=== PATIENT | female | born 1965 | race Caucasian/White ===

== ENCOUNTER 2018-04-06 07:40 | Inpatient (IN) | payer BC ==
[~2018-04-06] VITALS: Ht 149.9 cm; Wt 78.5 kg
--- OUTSIDE RECORDS SUMMARY | 2018-04-06 07:42 | XMS REPORT | Continuity of Care Document ---
Author Author [facility] Interface Address Unknown Phone Unavailable Problems Problem Status Onset Date Classification Date Reported Comments Source Upper respiratory infection 05/24/2017 Diagnosis 05/24/2017 [facility] Feeling feverish 05/24/2017 Diagnosis 05/24/2017 [facility] Pain in throat 05/24/2017 Diagnosis 05/24/2017 [facility] Medications Medication Details Route Status Patient Instructions Ordering Provider Order Date Source Brompheniramine Maleate 0.4 MG/ML / Dextromethorphan Hydrobromide 2 MG/ML / Pseudoephedrine Hydrochloride 6 MG/ML Oral Solution [Bromfed DM] Bromfed DM 2 mg-30 mg-10 mg/5 mL syrup Take 10 mL every 4 hours by oral route as needed. Active [facility] Allergies, Adverse Reactions, Alerts Substance Category Reaction Severity Reaction type Status Date Reported Comments Source Immunizations Immunization Date Given Site Status Last Updated Comments Source Results Order Name Results Value Reference Range Date Interpretation Comments Source RESULT negative 05/24/2017 [facility] SWAB LOCATION Left and Right tonsillar pillars 05/24/2017 [facility] Influenza A negative 05/24/2017 [facility] Influenza B negative 05/24/2017 [facility] Vital Signs Vital Sign Value Date Comments Source Diastolic (mm Hg) 78 05/24/2017 [facility] Height 60 05/24/2017 [facility] Systolic (mm Hg) 120 05/24/2017 [facility] Weight 160 05/24/2017 [facility] Encounters Location Location Details Encounter Type Encounter Number Reason For Visit Attending Provider ADM Date DC Date Status Source [place] - [facility] - [id number] Angel Carbajal, ELODIA-C: [address] [place] [address], Ph. [id number] Angel Carbajal 05/24/2017 [facility] Procedures Procedure Code Date Perfomer Comments Source Tubal Ligation [facility]
--- OUTSIDE RECORDS SUMMARY | 2018-04-06 07:42 | XMS REPORT | Clinical Summary ---
Author Author [facility] Organization [facility] Address Unknown Phone Unavailable Care Team Providers Care Wool Hat Finisher Name Role Phone Thierry Bauman MD PCP Allergies Active Allergy Reactions Severity Noted Date Comments Prednisone Other (See Comments), Low 06/04/2015 Rash Current Medications Prescription Sig. Disp. Refills Start End Date Status Date conjugated estrogens Insert 0.5 g into the 45 g 3 10/01/19 10/01/19 (PREMARIN) 0.625 mg/gram vagina 2 (two) times a 17 18 vaginal cream week. Active Problems Not on file Encounters Date Type Specialty Care Team Description 02/09/2018 Office Visit Obstetrics and Gynecology Ivis Munroe MD Visit for gynecologic examination (Primary Dx); Screening for breast cancer; Menopausal symptoms; Screening for malignant neoplasm of colon after 04/05/2017 Family History Medical History Relation Name Comments Hypertension Father Wood Miscarriages / Mother Melanie Stillbirths Osteoporosis Mother Melanie Relation Name Status Comments Father Wood Alive Mother Melanie Alive Social History Tobacco Use Types Packs/Day Years Used Date Never Smoker Smokeless Tobacco: Never Used Alcohol Use Drinks/Week oz/Week Comments No Sex Assigned at Date Recorded Not on file Last Filed Vital Signs Vital Sign Reading Time Taken Blood Pressure 126/84 02/09/2018 2:55 PM CDT Pulse 70 02/09/2018 2:55 PM CDT Temperature - - Respiratory Rate - - Oxygen Saturation - - Inhaled Oxygen - - Concentration Weight 77.1 kg (170 lb) 02/09/2018 2:55 PM CDT Height 152.4 cm (5') 02/09/2018 2:55 PM CDT Body Mass Index 33.2 02/09/2018 2:55 PM CDT Plan of Treatment Health Maintenance Due Date Last Done Comments COLON CANCER SCREENING 12/24/2015 SHINGRIX VACCINE (#1) 12/24/2015 INFLUENZA VACCINE 12/28/2017 BREAST CANCER SCREENING 11/05/2018 11/05/2016, 11/05/2016 CERVICAL CANCER SCREENING 09/29/2019 09/28/2016 Procedures Procedure Name Priority Date/Time Associated Diagnosis Comments POC OCCULT BLOOD STOOL Routine 02/09/2018 Screening for malignant Results for this 4:54 PM CDT neoplasm of colon procedure are in the results section. FOLLICLE STIMULATING Routine 02/09/2018 Menopausal symptoms Results for this HORMONE 3:19 PM CDT procedure are in the results section. after 04/05/2017 Results * POC occult blood stool (02/09/2018 4:54 PM) Fecal Occult Blood Negative Negative Specimen Stool * Follicle stimulating hormone (02/09/2018 3:19 PM) Follicle stimulating 6.3 mIU/mL [employer] hormone Comment: WENDEL Reference Range Follicular Phase 2.5-10.2 Mid-cycle Peak 3.1-17.7 Luteal Phase 1.5- 9.1 Postmenopausal 23.0-116.3 Specimen Blood Other Results Text Performing Organization Information: Site ID: [id number] Name: [facility] Lab Address: [address] [place] [id number] Director: Regina Lundberg Performing Organization Address City/State/Zipcode Phone Number [employer] [place] [phone] after 04/05/2017 Insurance Payer Benefit Subscriber ID Type Phone Address Plan / Group BCBS BCBS xxxxxxxxxxxx PPO CHOICE PPO/SIGIFREDO [place]MAN PPO Work: [address] [place] [id number] Home:
--- OUTSIDE RECORDS SUMMARY | 2018-04-06 07:42 | XMS REPORT | Encounter Summary ---
Author Organization Unknown Address [address] [place] [address] Phone [phone] Reason for Visit Medical Complaint Instructions 1. Upper respiratory infection upper respiratory infection (cold): care instructions Bromfed DM 2 mg-30 mg-10 mg/5 mL syrup 2. Feeling feverish rapid flu (A+B) 3. Pain in throat sore throat: care instructions rapid strep group A, throat Discussion Note: None recorded. Plan of Care Patient Instructions take bromfed as needed. it can cause drowsiness. do not drive will on this medication. follow up pcp Reminders Provider Appointments None recorded. Lab Rapid Flu (A+B) 05/24/2017 [facility] Rapid Strep Group a, Throat 05/24/2017 [facility] Referral None recorded. Procedures None recorded. Surgeries None recorded. Imaging None recorded. Medications Name Start Date Bromfed DM 2 mg-30 mg-10 mg/5 mL syrup Take 10 mL every 4 hours by oral route as needed. Medications Administered None recorded. Vitals Height Weight BMI Blood Pressure 5 ft 160 lbs 31.2 kg/m2 120/78 mm[Hg] Lab Results Date Name Specimen Result Interpretation Description Value Range Status Address Rapid Strep Group a, Throat Result negative [facility]: [address] [place] [address] Swab Location Left and Right tonsillar pillars [facility]: [address] [place] [address] Rapid Flu (A+B) Influenza a negative [facility]: [address] [place] [address] Influenza B negative [facility]: [address] [place] [address] Allergies Code Code System Name Reaction Severity Status Onset NKDA Problems None recorded. Procedures Date Name Performed by Tubal Ligation Information not available Vaccine List None recorded. Social History Smoking Status Never Smoker Past Encounters 05/24/2017 Upper Respiratory Infection; Feeling Feverish; Pain in Throat ELODIA Padilla-C: [address] [place] [address], Ph. History of Present Illness Bsqrp-[id number]-Ssehtnl Reported By: Patient HPI: Location: head/sinuses, throat, chest. Quality: sore throat, nasal/sinus congestion, dry cough. Duration: 3days. Severity: moderate. Onset/Timing: gradual. Context: no foreign travel, non-smoker, sick contact. Modifying factors: OTC medication. Associated Symptoms: no sputum production, no shortness of breath, no wheezing, no change in number of pillows needed to sleep at night, no sweats, no signific ant weight gain, no significant weight loss, no morning cough, no vomiting, no diarrhea, no rash, no nausea, no fever, no headache, sore throat, muscle aches Review of Systems:ROS as noted in the HPI Review of Systems Basic Reported By: Patient Physical Exam Adult Basic, Adult Female Complete Reported By: Patient Constitutional: General Appearance: healthy-appearing, well-nourished, well-developed. Level of Distress: NAD. Ambulation: ambulating normally Psychiatric: Mental Status: active and alert Eyes: Lids and Conjunctivae: non-injected, no discharge Ybp-Lmsj-Hejbi-Throat: Ears: no lesions on external ear, no outer ear tenderness, EACs clear, TMs clear. Hearing: no hearing loss. Nose: no lesions on external nose, nasal discharge--purulent; congestion. Lips, Teeth, and Gums: no mouth or lip ulcers. Oropharynx: moist mucous membranes, no erythema, no exudates, tonsils not enlarged Neck: Neck: trachea midline. Lymph Nodes: no cervical LAD Lungs: Respiratory effort: no dyspnea, no tachypnea, no use of accessory muscles, no intercostal retractions. Auscultation: breath sounds normal Cardiovascular: Heart Auscultation: RRR, no murmurs
[2018-04-06] MEDS ORDERED: KETOROLAC TROMETHAMINE 30 MG/ML VIAL IV STA (08:14)
[2018-04-06] MEDS ORDERED: ONDANSETRON HCL INJ 2 MG/ML VIAL IV STA (08:14)
[2018-04-06 08:35] LABS: BASOPHILS % 0.1 % (0.0-1.0); EOSINOPHILS % 0.2 % (0.0-6.0); HEMATOCRIT 33.6 % (34.2-44.1); HEMOGLOBIN 10.6 g/dL (12.0-16.0); LYMPHOCYTES # (AUTO) 1.7 (1.0-3.2); LYMPHOCYTES % 13.6 % (18.0-39.1); MEAN CORPUSCULAR HEMOGLOBIN 25.2 pg (28-32); MEAN CORPUSCULAR HGB CONC 31.5 g/dL (31-35); MEAN CORPUSCULAR VOLUME 79.8 fL (81-99); MONOCYTES # (AUTO) 0.9 (0.2-0.8); MONOCYTES % 7.5 % (4.4-11.3); NEUTROPHILS # (AUTO) 9.6 (2.1-6.9); NEUTROPHILS % 78.4 % (38.7-80.0); PLATELET COUNT 270 x10e3/uL (140-360); RED BLOOD COUNT 4.21 x10e6/uL (3.6-5.1); RED CELL DISTRIBUTION WIDTH 13.8 % (11.7-14.4)
[2018-04-06 08:43] LABS: CLARITY,URINE SL CLOUDY (CLEAR); COLOR,URINE YELLOW (YELLOW); KETONES,URINE NEGATIVE (NEGATIVE); LEUKOCYTE ESTERASE ,URINE NEGATIVE (NEGATIVE); NITRITE,URINE POSITIVE (NEGATIVE); PROTEIN,URINE DIPSTICK NEGATIVE (NEGATIVE)
[2018-04-06 08:44] LABS: BILIRUBIN,URINE NEGATIVE (NEGATIVE); PREGNANCY TEST, URINE NEGATIVE (NEGATIVE); URINE UROBILINOGEN 0.2 mg/dL (0.2 - 1)
[2018-04-06 08:57] LABS: ALANINE AMINOTRANSFERASE 17 IU/L (0-55); ALBUMIN 3.7 g/dL (3.5-5.0); ALBUMIN/GLOBULIN RATIO 1.2 (0.8-2.0); ALKALINE PHOSPHATASE 50 IU/L (40-150); ANION GAP 15.2 mmol/L (8-16); BLOOD UREA NITROGEN 7 mg/dL (7-26); BUN/CREATININE RATIO 9 (6-25); CALCIUM 9.4 mg/dL (8.4-10.2); CARBON DIOXIDE 25 mmol/L (22-29); CHLORIDE 101 mmol/L (98-107); CREATININE, SERUM 0.74 mg/dL (0.57-1.11); EST GLOMERULAR FILTRATION RATE > 60 ML/MIN (60-); GLUCOSE 116 mg/dL (74-118); POTASSIUM 3.2 mmol/L (3.5-5.1); SODIUM 138 mmol/L (136-145)
[2018-04-06 09:00] LABS: BACTERIA,URINE MANY /HPF; EPITHELIAL CELLS,URINE FEW /LPF; RBC,URINE 0-5 /HPF (0-5)
[2018-04-06] MEDS ORDERED: CEFTRIAXONE SOD 1 GM VIAL IV ONE (10:00)
--- NOTE | 2018-04-06 11:24 | Diagnostic Imaging Report ---
PROCEDURE: CT ABDOMEN AND PELVIS WITHOUT CONTRAST TECHNIQUE: The abdomen and pelvis were scanned utilizing a multidetector helical scanner from the diaphragm to the lesser trochanter. No IV contrast was administered per protocol. Coronal and sagittal multiplanar reformations were obtained. COMPARISON: None. INDICATIONS: LEFT SIDE PAIN FINDINGS: ABSENCE OF INTRAVENOUS CONTRAST DECREASES SENSITIVITY FOR DETECTION OF FOCAL LESIONS AND VASCULAR PATHOLOGY. LOWER THORAX: Patchy dependent atelectasis. HEPATOBILIARY: No focal hepatic lesions. No biliary ductal dilatation. SPLEEN: No splenomegaly. PANCREAS: No focal masses or ductal dilatation. ADRENALS: No adrenal nodules. KIDNEYS/URETERS: No hydronephrosis, stones, or solid mass lesions. PELVIC ORGANS/BLADDER: Possible fibroid uterus. PERITONEUM / RETROPERITONEUM: No free air. LYMPH NODES: No lymphadenopathy. VESSELS: Unremarkable. GI TRACT: Sigmoid and descending colonic diverticulosis with focal distal descending colonic wall thickening and pericolonic stranding and trace fluid in the left retroperitoneal space. Normal appendix. BONES AND SOFT TISSUES: Unremarkable. IMPRESSION: Distal descending colonic acute diverticulitis. Some pericolonic stranding and trace fluid in the left retroperitoneum without evidence of drainable fluid collection or free air. No evidence of renal stone. Dictated by: ARLIN BROWN M.D. on 04/06/2018 at 11:33 Electronically approved by: ARLIN BROWN M.D. on 04/06/2018 at 11:33
[2018-04-06] MEDS ORDERED: HYDROMORPHONE 1MG/1ML INJ IV PRN (12:00)
[2018-04-06] MEDS ORDERED: ONDANSETRON HCL INJ 2 MG/ML VIAL IV PRN (12:00)
[2018-04-06] MEDS ORDERED: PIPER-TAZ 3.375 GM / NS 50ML IV SCH (12:00)
[2018-04-06] MEDS ORDERED: HYDROMORPHONE 2MG/ML 2 MG/ML ML IV PRN ×2 (12:15)
[2018-04-06] MEDS: D5.45%NS/KCL 20MEQ 1,000 ML IV SCH (12:25)
[2018-04-06] MEDS: PIPER-TAZ 3.375 GM 50 ML IV SCH ×2 (12:26→18:03)
[2018-04-06] MEDS: METRONIDAZOLE 500MG/NS 100ML 100 ML IV SCH ×3 (13:07→23:32)
--- OUTSIDE RECORDS SUMMARY | 2018-04-06 13:07 | XMS REPORT | Clinical Summary ---
Author Author [facility] Address Unknown Phone Unavailable Care Team Providers Care Brass And Wind Instrument Repairer Name Role Phone Thierry Bauman MD PCP [...] (02/09/2018 3:19 PM) Follicle stimulating 6.3 mIU/mL [employer] hormone Comment: SASABE Reference Range Follicular Phase 2.5-10.2 Mid-cycle Peak 3.1-17.7 Luteal Phase 1.5- 9.1 Postmenopausal 23.0-116.3 Specimen Blood Other Results Text Performing Organization Information: Site ID: [id number] Name: [facility] Address: [address] [place] [id number] Director: Regina Lundberg Performing Organization Address City/State/Zipcode Phone Number [employer] [place] [phone] after 04/05/2017 Insurance Payer Benefit Subscriber ID Type Phone Address Plan / Group BCBS BCBS xxxxxxxxxxxx PPO CHOICE PPO/SIGIFREDO NEWMAN PPO Work: [address] [place] [id number] Home:
--- OUTSIDE RECORDS SUMMARY | 2018-04-06 13:07 | XMS REPORT ---
Author Author [facility] Address Unknown Phone Unavailable Care Team Providers Care Java Jsf Developer Name Role Phone Radha GONZALEZ Unavailable Unavailable Problems This patient has no known problems. Allergies, Adverse Reactions, Alerts This patient has no known allergies or adverse reactions. Medications This patient has no known medications. Results Test Description Test Time Test Comments Text Results Atomic Results Result Comments CT ABDOMEN/PELVIS WO 2018-04-06 11:33:00 [place] [address] Patient Name: BRIDGET OLIVERA MR #: [id number] : 1965 Age/Sex: 52/F Req #: [id number] Adm Physician: Ordered by: DIANNA GONZALEZ MD Report #: [id number] Location: ER Room/Bed: Procedure: [id number] CT/CT ABDOMEN/PELVIS WO Exam Date: 04/06/18 Exam Time: 0850 REPORT STATUS: Signed PROCEDURE: CT ABDOMEN AND PELVIS WITHOUT CONTRAST TECHNIQUE: The abdomen and pelvis were scanned utilizing a multidetector helical scanner from the diaphragm to the lesser trochanter. No IV contrast was administered per protocol. Coronal and sagittal multiplanar reformations were obtained. COMPARISON: None. INDICATIONS: LEFT SIDE PAIN FINDINGS: ABSENCE OF INTRAVENOUS CONTRAST DECREASES SENSITIVITY FOR DETECTION OF FOCAL LESIONS AND VASCULAR PATHOLOGY. LOWER THORAX: Patchy dependent atelectasis. HEPATOBILIARY: No focal hepatic lesions. No biliary ductal dilatation. SPLEEN: No splenomegaly. PANCREAS: No focal masses or ductal dilatation. ADRENALS: No adrenal nodules. KIDNEYS/URETERS: No hydronephrosis, stones, or solid mass lesions. PELVIC ORGANS/BLADDER: Possible fibroid uterus. PERITONEUM / RETROPERITONEUM: No free air. LYMPH NODES: No lymphadenopathy. VESSELS: Unremarkable. GI TRACT: Sigmoid and descending colonic diverticulosis with focal distal descending colonic wall thickening and pericolonic stranding and trace fluid in the left retroperitoneal space. Normal appendix. BONES AND SOFT TISSUES: Unremarkable. IMPRESSION: Distal descending colonic acute diverticulitis. Some pericolonic stranding and trace fluid in the left retroperitoneum without evidence of drainable fluid collection or free air. No evidence of renal stone. Dictated by: ARLIN BROWN M.D. on 04/06/2018 at 11:33 Electronically approved by: ARLIN BROWN M.D. on 04/06/2018 at 11:33 Dictated By: ARLIN BROWN MD [id number] Transcribed By: JIMENEZ on 04/06/18 1133 COPY TO: DIANNA GONZALEZ MD
[2018-04-06 16:21] VITALS: BP 140/79
[2018-04-06 16:30] VITALS: BP 140/79
[2018-04-06] MEDS ORDERED: INFLUENZA VIRUS VAC SPLIT INJ 0.5 ML SYR IM ONE (19:00)
[2018-04-06 20:00] VITALS: BP 158/89
[2018-04-06] MEDS ORDERED: ACETAMINOPHEN 1000 MG/100 ML IV PRN (21:15)
[2018-04-07] VITALS (7 sets, daily range): BP systolic 115–144; BP diastolic 64–90
[2018-04-07] MEDS: D5.45%NS/KCL 20MEQ 1,000 ML IV SCH ×2 (01:15→19:06)
[2018-04-07] MEDS: METRONIDAZOLE 500MG/NS 100ML 100 ML IV SCH ×4 (05:19→23:16)
[2018-04-07 05:41] LABS: BASOPHILS % 0.1 % (0.0-1.0); EOSINOPHILS % 0.4 % (0.0-6.0); HEMATOCRIT 29.7 % (34.2-44.1); HEMOGLOBIN 9.4 g/dL (12.0-16.0); LYMPHOCYTES # (AUTO) 1.3 (1.0-3.2); LYMPHOCYTES % 12.3 % (18.0-39.1); MEAN CORPUSCULAR HEMOGLOBIN 25.5 pg (28-32); MEAN CORPUSCULAR HGB CONC 31.6 g/dL (31-35); MEAN CORPUSCULAR VOLUME 80.5 fL (81-99); MONOCYTES # (AUTO) 0.8 (0.2-0.8); MONOCYTES % 7.4 % (4.4-11.3); NEUTROPHILS # (AUTO) 8.4 (2.1-6.9); NEUTROPHILS % 79.6 % (38.7-80.0); PLATELET COUNT 222 x10e3/uL (140-360); RED BLOOD COUNT 3.69 x10e6/uL (3.6-5.1); RED CELL DISTRIBUTION WIDTH 13.9 % (11.7-14.4)
[2018-04-07] MEDS: PIPER-TAZ 3.375 GM 50 ML IV SCH ×4 (05:45→16:59)
[2018-04-07 05:56] LABS: ANION GAP 16.1 mmol/L (8-16); BLOOD UREA NITROGEN 6 mg/dL (7-26); BUN/CREATININE RATIO 9 (6-25); CALCIUM 8.4 mg/dL (8.4-10.2); CARBON DIOXIDE 23 mmol/L (22-29); CHLORIDE 103 mmol/L (98-107); CREATININE, SERUM 0.68 mg/dL (0.57-1.11); EST GLOMERULAR FILTRATION RATE > 60 ML/MIN (60-); GLUCOSE 114 mg/dL (74-118); POTASSIUM 3.1 mmol/L (3.5-5.1); SODIUM 139 mmol/L (136-145)
[2018-04-07] MEDS ORDERED: INFLUENZA VIRUS VAC SPLIT INJ 0.5 ML SYR IM PRN (09:00)
[2018-04-07 12:09] LABS: CHOL/HDL RATIO 3.3 (3.0-3.6)
[2018-04-07] MEDS ORDERED: SODIUM CHLORIDE 0.9% 1000ML 1,000 ML IV SCH (13:00)
--- NOTE | 2018-04-07 14:56 | History and Physical ---
PRIMARY CARE PHYSICIAN: None. CHIEF COMPLAINT: Left-sided abdominal pain/flank pain. HISTORY OF PRESENT ILLNESS: This is a 52-year-old woman with a history of diverticulosis, , left-sided flank pain and left-sided abdominal pain. Came to the hospital due to nausea and persistent symptoms and subjective fevers. Found to have pyelonephritis and diverticulitis. Admitted for further evaluation and management. PAST MEDICAL HISTORY: Diverticulosis, hypertension, . PAST SURGICAL HISTORY: Tubal ligation. ALLERGIES: PER ELECTRONIC MEDICAL RECORD. FAMILY AND SOCIAL HISTORY: Patient is . She has 3 children. Occasional alcohol. No cigarettes or illicits. She works at [employer]. MEDICATIONS: Per electronic medical record. REVIEW OF SYSTEMS: Denies any dizziness, chest pain. Denies any diarrhea. Denies any headache, vision changes. Denies any leg pain. PHYSICAL EXAMINATION VITAL SIGNS: Have been reviewed. GENERAL: A tired-appearing woman, resting in bed. HEENT: Anicteric. Pupils respond to light. No oral lesions. CARDIOVASCULAR: Normal S1 and S2. LUNGS: She has bilaterally reduced breath sounds, coughing with inspiration. ABDOMEN: Soft, nondistended. She has tenderness in left lower abdomen. She has left-sided CVA tenderness on percussion. EXTREMITIES: No edema. SKIN: Dry. PSYCHIATRIC: Flat affect. NEUROLOGIC: Alert and oriented x3. Moving all extremities. LABS: Reviewed. MEDICATIONS: Reviewed. ASSESSMENT: This is a 52-year-old woman. 1. Acute colonic diverticulitis. 2. Acute left-sided pyelonephritis. 3. Urinary tract infection, gram-negative rods. 4. Severe sepsis with colonic dysfunction. 5. Hypokalemia. 6. Severe obesity. 7. Body mass index 35.8 with hypertension. 8. Acute bronchitis. PLAN 1. Continue IV antibiotics, Flagyl and Zosyn. 2. Recheck potassium level. 3. Obtain CT of the chest to evaluate for any abnormalities. Patient with continued shortness of breath and cough and dyspnea on exertion. 4. Screen for diabetes . 5. Treat nausea. 6. Use SCDs for prophylaxis and Pepcid. DISPOSITION: Follow up labs and images. Job#: [id number] OKSANA
[2018-04-07] MEDS ORDERED: POTASSIUM CHLORIDE 20MEQ/15ML UDC NG ONE (16:45)
--- NOTE | 2018-04-07 18:31 | Diagnostic Imaging Report ---
EXAM: CT CHEST W INDICATION: Shortness of breath, bronchitis, acute colonic diverticulitis. COMPARISON: None TECHNIQUE: Multidetector CT scanning of the chest was performed. Axial images provided for evaluation. Dose modulation, iterative reconstruction, and/or weight based adjustment of the mA/kV was utilized to reduce the radiation dose to as low as reasonably achievable. Routine protocol performed. IV Contrast: 100 cc Isovue-370 CTDIvol has been reviewed. It is below the limits set by the Radiation Protocol Committee (RPC). FINDINGS: LUNGS AND AIRWAYS: The trachea and major bronchi are unremarkable. No consolidations or edema. Bibasilar linear atelectasis/scarring. PLEURA: No effusions or pneumothorax. HEART, MEDIASTINUM, VESSELS: Normal. UPPER ABDOMEN: Partially visualized inflammation of the descending colon. MUSCULOSKELETAL: No acute findings. IMPRESSION: No evidence of pneumonia. Partially visualized inflammation of the descending colon, which would be consistent with provided history of acute diverticulitis. Signed by: Dr. Homa Lewis M.D. on 04/07/2018 6:27 PM
[2018-04-07] MEDS: FAMOTIDINE 20 MG/2 ML VIAL IV SCH (19:06)
[2018-04-07] MEDS ORDERED: SODIUM CHLORIDE 0.9% 50ML 50 ML ONE ×2 (21:53→21:54)
[2018-04-07] MEDS ORDERED: IOPAMIDOL 370 MG/ML 200 ML INFUS..BTL INJ ONE (21:53)
[2018-04-08] VITALS (8 sets, daily range): BP systolic 120–167; BP diastolic 69–90
[2018-04-08] MEDS: PIPER-TAZ 3.375 GM 50 ML IV SCH ×3 (00:10→12:09)
[2018-04-08] MEDS: METRONIDAZOLE 500MG/NS 100ML 100 ML IV SCH ×3 (05:34→23:41)
[2018-04-08] MEDS: D5.45%NS/KCL 20MEQ 1,000 ML IV SCH ×2 (05:34→17:15)
[2018-04-08 06:10] LABS: BASOPHILS % 0.2 % (0.0-1.0); EOSINOPHILS % 0.6 % (0.0-6.0); LYMPHOCYTES # (AUTO) 1.5 (1.0-3.2); LYMPHOCYTES % 22.9 % (18.0-39.1); MEAN CORPUSCULAR HEMOGLOBIN 25.1 pg (28-32); MEAN CORPUSCULAR VOLUME 80.8 fL (81-99); MONOCYTES # (AUTO) 0.5 (0.2-0.8); MONOCYTES % 7.8 % (4.4-11.3); NEUTROPHILS # (AUTO) 4.5 (2.1-6.9); PLATELET COUNT 251 x10e3/uL (140-360); RED BLOOD COUNT 3.59 x10e6/uL (3.6-5.1); RED CELL DISTRIBUTION WIDTH 14.1 % (11.7-14.4)
[2018-04-08 06:30] LABS: ANION GAP 13.6 mmol/L (8-16); BLOOD UREA NITROGEN < 5 mg/dL (7-26); CALCIUM 8.2 mg/dL (8.4-10.2); CARBON DIOXIDE 23 mmol/L (22-29); CHLORIDE 109 mmol/L (98-107); CREATININE, SERUM 0.68 mg/dL (0.57-1.11); EST GLOMERULAR FILTRATION RATE > 60 ML/MIN (60-); GLUCOSE 117 mg/dL (74-118); MAGNESIUM 2.2 MG/DL (1.3-2.1); POTASSIUM 3.6 mmol/L (3.5-5.1); SODIUM 142 mmol/L (136-145)
[2018-04-08 06:31] LABS: BUN/CREATININE RATIO 7 (6-25)
[2018-04-08] MEDS: FAMOTIDINE 20 MG/2 ML VIAL IV SCH ×2 (07:42→17:00)
[2018-04-09] VITALS (7 sets, daily range): BP systolic 117–155; BP diastolic 66–92
[2018-04-09] MEDS: D5.45%NS/KCL 20MEQ 1,000 ML IV SCH ×2 (00:10→15:30)
[2018-04-09] MEDS: PIPER-TAZ 3.375 GM 50 ML IV SCH ×4 (00:30→17:38)
[2018-04-09] MEDS: METRONIDAZOLE 500MG/NS 100ML 100 ML IV SCH ×3 (06:00→17:38)
[2018-04-09 07:42] LABS: BASOPHILS % 0.1 % (0.0-1.0); EOSINOPHILS # (AUTO) 0.1 (0.0-0.4); EOSINOPHILS % 1.4 % (0.0-6.0); HEMATOCRIT 31.6 % (34.2-44.1); HEMOGLOBIN 9.7 g/dL (12.0-16.0); LYMPHOCYTES # (AUTO) 1.6 (1.0-3.2); MEAN CORPUSCULAR HEMOGLOBIN 25.1 pg (28-32); MEAN CORPUSCULAR HGB CONC 30.7 g/dL (31-35); MEAN CORPUSCULAR VOLUME 81.9 fL (81-99); MONOCYTES # (AUTO) 0.7 (0.2-0.8); MONOCYTES % 8.4 % (4.4-11.3); NEUTROPHILS # (AUTO) 5.7 (2.1-6.9); NEUTROPHILS % 69.9 % (38.7-80.0); PLATELET COUNT 279 x10e3/uL (140-360); RED BLOOD COUNT 3.86 x10e6/uL (3.6-5.1); RED CELL DISTRIBUTION WIDTH 13.9 % (11.7-14.4)
[2018-04-09] MEDS: FAMOTIDINE 20 MG/2 ML VIAL IV SCH ×3 (07:57→17:38)
[2018-04-09 07:58] LABS: ANION GAP 14.5 mmol/L (8-16); BLOOD UREA NITROGEN < 5 mg/dL (7-26); CALCIUM 8.6 mg/dL (8.4-10.2); CARBON DIOXIDE 24 mmol/L (22-29); CHLORIDE 105 mmol/L (98-107); CREATININE, SERUM 0.71 mg/dL (0.57-1.11); EST GLOMERULAR FILTRATION RATE > 60 ML/MIN (60-); GLUCOSE 97 mg/dL (74-118); POTASSIUM 3.5 mmol/L (3.5-5.1); SODIUM 140 mmol/L (136-145)
[2018-04-09 07:59] LABS: BUN/CREATININE RATIO 7 (6-25)
[2018-04-09 12:12] LABS: CREATINE KINASE 46 IU/L (29-168)
[2018-04-09] MEDS: MAGNESIUM/ALUMINUM/SIMETHICONE 30 ML UDC PO PRN (13:41)
[2018-04-10] VITALS (7 sets, daily range): BP systolic 127–171; BP diastolic 86–105
[2018-04-10] MEDS: PIPER-TAZ 3.375 GM 50 ML IV SCH ×2 (00:02→05:25)
[2018-04-10] MEDS: MAGNESIUM/ALUMINUM/SIMETHICONE 30 ML UDC PO PRN (00:05)
[2018-04-10] MEDS: METRONIDAZOLE 500MG/NS 100ML 100 ML IV SCH ×3 (00:42→12:27)
[2018-04-10] MEDS: D5.45%NS/KCL 20MEQ 1,000 ML IV SCH ×2 (04:43→09:15)
[2018-04-10 09:03] LABS: BASOPHILS % 0.2 % (0.0-1.0); EOSINOPHILS # (AUTO) 0.1 (0.0-0.4); EOSINOPHILS % 1.3 % (0.0-6.0); HEMATOCRIT 32.4 % (34.2-44.1); HEMOGLOBIN 10.1 g/dL (12.0-16.0); LYMPHOCYTES # (AUTO) 0.9 (1.0-3.2); LYMPHOCYTES % 15.7 % (18.0-39.1); MEAN CORPUSCULAR HEMOGLOBIN 25.4 pg (28-32); MEAN CORPUSCULAR HGB CONC 31.2 g/dL (31-35); MEAN CORPUSCULAR VOLUME 81.4 fL (81-99); MONOCYTES # (AUTO) 0.2 (0.2-0.8); MONOCYTES % 3.8 % (4.4-11.3); NEUTROPHILS # (AUTO) 4.7 (2.1-6.9); NEUTROPHILS % 78.7 % (38.7-80.0); PLATELET COUNT 257 x10e3/uL (140-360); RED BLOOD COUNT 3.98 x10e6/uL (3.6-5.1); RED CELL DISTRIBUTION WIDTH 13.8 % (11.7-14.4)
[2018-04-10] MEDS: FAMOTIDINE 20 MG/2 ML VIAL IV SCH (09:16)
[2018-04-10 09:22] LABS: ANION GAP 12.2 mmol/L (8-16); BLOOD UREA NITROGEN < 5 mg/dL (7-26); CALCIUM 8.7 mg/dL (8.4-10.2); CARBON DIOXIDE 23 mmol/L (22-29); CHLORIDE 104 mmol/L (98-107); CREATININE, SERUM 0.76 mg/dL (0.57-1.11); EST GLOMERULAR FILTRATION RATE > 60 ML/MIN (60-); GLUCOSE 144 mg/dL (74-118); POTASSIUM 3.2 mmol/L (3.5-5.1); SODIUM 136 mmol/L (136-145)
[2018-04-10 09:23] LABS: BUN/CREATININE RATIO 7 (6-25)
[2018-04-10] MEDS ORDERED: FLAGYL500 MG PO (12:10)
[2018-04-10] MEDS ORDERED: ZOFRAN ODT4 MG PO (12:10)
[2018-04-10] MEDS ORDERED: LEVAQUIN500 MG PO (12:10)
[2018-04-10] MEDS ORDERED: PEPCID20 MG PO (12:10)
[2018-04-10] MEDS ORDERED: POTASSIUM CHLORIDE 20 MEQ TAB CR PO STA (12:11)
[2018-04-10] MEDS ORDERED: LOPERAMIDE HCL 2 MG CAP PO PRN (13:15)
[2018-04-10] MEDS ORDERED: IMODIUM2 MG PO (15:22)
== END 2018-04-10 16:59 | disposition home or self-care (01) | DRG 872 ==
LOC: ER 07:40 → ERHOLD 13:03 → MED/SURG3 15:55 → OBSVTOIN 04-07 11:52
PROVIDERS: ADMIT Internal Medicine; ATTEND Internal Medicine
DX: A41.9 Sepsis, unspecified organism (principal); K57.32 Diverticulitis of large intestine without perforation or abscess without bleeding; N10 Acute pyelonephritis; I10 Essential (primary) hypertension; B96.89 Other specified bacterial agents as the cause of diseases classified elsewhere; R65.20 Severe sepsis without septic shock; E87.6 Hypokalemia; E66.9 Obesity, unspecified; Z68.35 Body mass index [BMI] 35.0-35.9, adult; J20.9 Acute bronchitis, unspecified; Z28.21 Immunization not carried out because of patient refusal
CPT/HCPCS: 36415; 71260; 74176; 80048; 80053; 80061; 81001; 81025; 82550; 82553; 83036; 83735; 84132; 84484; 85025; 87086; 87186; 93005; 96361; 99284; G0378; J0696; J1885; J2405; J2543; J7030; Q9967

== ENCOUNTER 2020-06-30 10:56 | Emergency (ER) | payer BC ==
[~2020-06-30] VITALS: Ht 149.9 cm; Wt 78.5 kg
[~2020-06-30 10:56] MED LIST: FLAGYL500 MG PO; IMODIUM2 MG PO; LEVAQUIN500 MG PO; PEPCID20 MG PO; ZOFRAN ODT4 MG PO
[2020-06-30 11:14] VITALS: BP 110/70
== END 2020-06-30 11:28 | disposition home or self-care (01) ==
LOC: ER 11:24
DX: U07.1 COVID-19 (principal); R06.02 Shortness of breath; R50.9 Fever, unspecified; R05 Cough; Z87.19 Personal history of other diseases of the digestive system
CPT/HCPCS: 99282

== ENCOUNTER 2020-11-11 17:28 | Inpatient (IN) | payer BC ==
[~2020-11-11] VITALS: Ht 149.9 cm; Wt 76.7 kg
[2020-11-11] MEDS ORDERED: SODIUM CHLORIDE 0.9% 1000ML 1,000 ML IV STA (17:32)
[2020-11-11] MEDS ORDERED: ONDANSETRON HCL INJ 2MG/ML 2ML 2 MG/ML VIAL IV STA (17:32)
[2020-11-11] MEDS ORDERED: ACETAMINOPHEN 325 MG TAB PO ONE (17:45)
[2020-11-11] MEDS ORDERED: CEFTRIAXONE 1 GM in SODIUM CHLORIDE 0.9% 50ML 50 ML IV ONE (17:45)
[2020-11-11] MEDS ORDERED: MORPHINE SULFATE INJ 4 MG/ML INJ 1ML IV PRN (17:45)
[2020-11-11 18:00] LABS: BASOPHILS % 0.1 % (0.0-1.0); EOSINOPHILS # (AUTO) 0.1 (0.0-0.4); EOSINOPHILS % 0.5 % (0.0-6.0); HEMATOCRIT 38.2 % (34.2-44.1); LYMPHOCYTES # (AUTO) 1.5 (1.0-3.2); LYMPHOCYTES % 10.3 % (18.0-39.1); MEAN CORPUSCULAR HEMOGLOBIN 30.1 pg (28-32); MEAN CORPUSCULAR VOLUME 88.4 fL (81-99); MONOCYTES # (AUTO) 1.1 (0.2-0.8); MONOCYTES % 7.5 % (4.4-11.3); PLATELET COUNT 234 x10e3/uL (140-360); RED BLOOD COUNT 4.32 x10e6/uL (3.6-5.1); RED CELL DISTRIBUTION WIDTH 12.7 % (11.7-14.4)
[2020-11-11 18:11] LABS: CLARITY,URINE SL CLOUDY (CLEAR); COLOR,URINE YELLOW (YELLOW); KETONES,URINE 1+ (NEGATIVE); LEUKOCYTE ESTERASE ,URINE SMALL (NEGATIVE); NITRITE,URINE POSITIVE (NEGATIVE); PROTEIN,URINE DIPSTICK 2+ (NEGATIVE); URINE UROBILINOGEN 1 mg/dL (0.2 - 1)
[2020-11-11] MEDS ORDERED: IOPAMIDOL 370 MG/ML 200 ML INFUS..BTL INJ ONE (18:12)
[2020-11-11] MEDS ORDERED: SODIUM CHLORIDE 0.9% 50ML 50 ML ONE (18:12)
[2020-11-11 18:13] LABS: ALBUMIN 3.3 g/dL (3.5-5.0); ALBUMIN/GLOBULIN RATIO 0.8 (0.8-2.0); ANION GAP 14.1 mmol/L (8-16); CALCIUM 9.1 mg/dL (8.4-10.2); CREATININE, SERUM 0.99 mg/dL (0.57-1.11); POTASSIUM 3.1 mmol/L (3.5-5.1)
[2020-11-11 18:19] LABS: BACTERIA,URINE MODERATE /HPF; EPITHELIAL CELLS,URINE FEW /LPF
[2020-11-11] MEDS ORDERED: LEVOFLOXACIN 500MG/D5W 100ML IV SCH (21:30)
[2020-11-11] MEDS: LEVOFLOXACIN 500MG/D5W 100ML 100 ML IV SCH (21:45)
[2020-11-12] VITALS (9 sets, daily range): BP systolic 107–174; BP diastolic 67–93
[2020-11-12] MEDS ORDERED: METRONIDAZOLE 500MG/NS 100ML IV SCH
[2020-11-12] MEDS: METRONIDAZOLE 500MG/NS 100ML 100 ML IV SCH ×4 (00:15→18:13)
[2020-11-12] MEDS ORDERED: SODIUM CHLORIDE 0.9% 250ML 250 ML ONE (00:19)
[2020-11-12] MEDS: ACETAMINOPHEN 325 MG TAB PO PRN ×4 (02:00→20:47)
[2020-11-12 05:55] LABS: BASOPHILS % 0.2 % (0.0-1.0); EOSINOPHILS # (AUTO) 0.1 (0.0-0.4); EOSINOPHILS % 0.7 % (0.0-6.0); HEMATOCRIT 35.9 % (34.2-44.1); HEMOGLOBIN 12.2 g/dL (12.0-16.0); LYMPHOCYTES # (AUTO) 1.6 (1.0-3.2); LYMPHOCYTES % 14.4 % (18.0-39.1); MEAN CORPUSCULAR HEMOGLOBIN 30.6 pg (28-32); MONOCYTES # (AUTO) 0.9 (0.2-0.8); MONOCYTES % 8.4 % (4.4-11.3); NEUTROPHILS # (AUTO) 8.2 (2.1-6.9); NEUTROPHILS % 75.8 % (38.7-80.0); PLATELET COUNT 229 x10e3/uL (140-360); RED BLOOD COUNT 3.99 x10e6/uL (3.6-5.1); RED CELL DISTRIBUTION WIDTH 12.6 % (11.7-14.4)
[2020-11-12 06:18] LABS: ALANINE AMINOTRANSFERASE 15 IU/L (0-55); ALBUMIN 2.8 g/dL (3.5-5.0); ALBUMIN/GLOBULIN RATIO 0.8 (0.8-2.0); ALKALINE PHOSPHATASE 59 IU/L (40-150); ANION GAP 13.1 mmol/L (8-16); BLOOD UREA NITROGEN 9 mg/dL (7-26); BUN/CREATININE RATIO 12 (6-25); CALCIUM 8.1 mg/dL (8.4-10.2); CARBON DIOXIDE 27 mmol/L (22-29); CHLORIDE 102 mmol/L (98-107); CREATININE, SERUM 0.74 mg/dL (0.57-1.11); EST GLOMERULAR FILTRATION RATE > 60 ML/MIN (60-); GLUCOSE 99 mg/dL (74-118); POTASSIUM 3.1 mmol/L (3.5-5.1); SODIUM 139 mmol/L (136-145)
[2020-11-12] MEDS: SODIUM CHLORIDE 0.9% 1000ML 1,000 ML IV SCH (07:52)
[2020-11-12] MEDS ORDERED: POTASSIUM CHLORIDE 10MEQ EA PO ONE (08:00)
[2020-11-12] MEDS ORDERED: ONDANSETRON HCL INJ 2MG/ML 2ML 2 MG/ML VIAL IV PRN (09:30)
[2020-11-12] MEDS ORDERED: HYDRALAZINE HCL 20 MG/ML VIAL IV PRN (09:30)
[2020-11-12] MEDS ORDERED: ACETAMINOPHEN/CODEINE 300MG - 30MG TAB PO PRN (09:30)
[2020-11-12] MEDS: LEVOFLOXACIN 500MG/D5W 100ML 100 ML IV SCH (21:45)
[2020-11-13] VITALS (8 sets, daily range): BP systolic 118–149; BP diastolic 81–108
[2020-11-13] MEDS: SODIUM CHLORIDE 0.9% 1000ML 1,000 ML IV SCH ×2 (02:15→15:58)
[2020-11-13 05:39] LABS: ANION GAP 13.1 mmol/L (8-16); BLOOD UREA NITROGEN 5 mg/dL (7-26); BUN/CREATININE RATIO 7 (6-25); CALCIUM 8.5 mg/dL (8.4-10.2); CARBON DIOXIDE 28 mmol/L (22-29); CHLORIDE 101 mmol/L (98-107); CREATININE, SERUM 0.68 mg/dL (0.57-1.11); EST GLOMERULAR FILTRATION RATE > 60 ML/MIN (60-); GLUCOSE 112 mg/dL (74-118); POTASSIUM 3.1 mmol/L (3.5-5.1); SODIUM 139 mmol/L (136-145)
[2020-11-13] MEDS: METRONIDAZOLE 500MG/NS 100ML 100 ML IV SCH ×2 (05:45)
[2020-11-13] MEDS: ACETAMINOPHEN 325 MG TAB PO PRN ×2 (09:21→21:01)
[2020-11-13] MEDS ORDERED: POTASSIUM CHLORIDE 20 MEQ TAB CR PO ONE (10:40)
[2020-11-13] MEDS: PIPERACILLIN/TAZOBACTAM 3.375 GM in SODIUM CHLORIDE 0.9% 50ML 50 ML IV SCH ×2 (11:17→21:01)
[2020-11-13] MEDS ORDERED: IBUPROFEN 600 MG TAB PO PRN (12:00)
[2020-11-13] MEDS: LACTOBACILLUS ACIDOPHILUS CAPSULE PO SCH ×2 (14:21→21:01)
[2020-11-13] MEDS: HEPARIN SOD (PORCINE) 5,000 UNIT/ML VIAL SC SCH (21:00)
[2020-11-14] VITALS (8 sets, daily range): BP systolic 122–161; BP diastolic 78–95
[2020-11-14] MEDS: PIPERACILLIN/TAZOBACTAM 3.375 GM in SODIUM CHLORIDE 0.9% 50ML 50 ML IV SCH ×3 (04:58→22:30)
[2020-11-14 06:30] LABS: BLOOD UREA NITROGEN 6 mg/dL (7-26); BUN/CREATININE RATIO 9 (6-25); CALCIUM 7.8 mg/dL (8.4-10.2); CARBON DIOXIDE 25 mmol/L (22-29); CHLORIDE 100 mmol/L (98-107); CREATININE, SERUM 0.64 mg/dL (0.57-1.11); EST GLOMERULAR FILTRATION RATE > 60 ML/MIN (60-); GLUCOSE 92 mg/dL (74-118); SODIUM 137 mmol/L (136-145)
[2020-11-14] MEDS ORDERED: METRONIDAZOLE 500 MG TAB PO SCH (08:30)
[2020-11-14] MEDS: HEPARIN SOD (PORCINE) 5,000 UNIT/ML VIAL SC SCH ×2 (09:00→22:40)
[2020-11-14] MEDS ORDERED: LEVOFLOXACIN 500 MG TAB PO SCH (09:00)
[2020-11-14] MEDS: CHOLESTYRAMINE 4 GM PACKET PO SCH ×2 (09:14→16:57)
[2020-11-14] MEDS: LACTOBACILLUS ACIDOPHILUS CAPSULE PO SCH ×3 (09:14→22:46)
[2020-11-14] MEDS ORDERED: POTASSIUM CHLORIDE 20 MEQ TAB CR PO ONE (09:15)
[2020-11-14] MEDS: POTASSIUM CHLORIDE 20 MEQ TAB CR PO SCH ×2 (10:30→16:57)
[2020-11-14] MEDS: SODIUM CHLORIDE 0.9% 1000ML 1,000 ML IV SCH ×2 (16:57)
[2020-11-15 01:18] VITALS: BP 128/85
[2020-11-15 04:43] VITALS: BP 126/79
[2020-11-15 06:31] LABS: BASOPHILS % 0.1 % (0.0-1.0); EOSINOPHILS # (AUTO) 0.1 (0.0-0.4); EOSINOPHILS % 0.7 % (0.0-6.0); HEMATOCRIT 35.1 % (34.2-44.1); HEMOGLOBIN 11.6 g/dL (12.0-16.0); LYMPHOCYTES # (AUTO) 1.4 (1.0-3.2); LYMPHOCYTES % 16.6 % (18.0-39.1); MEAN CORPUSCULAR HEMOGLOBIN 29.8 pg (28-32); MEAN CORPUSCULAR VOLUME 90.2 fL (81-99); MONOCYTES # (AUTO) 0.8 (0.2-0.8); MONOCYTES % 9.3 % (4.4-11.3); NEUTROPHILS # (AUTO) 6.2 (2.1-6.9); NEUTROPHILS % 72.4 % (38.7-80.0); PLATELET COUNT 247 x10e3/uL (140-360); RED BLOOD COUNT 3.89 x10e6/uL (3.6-5.1); RED CELL DISTRIBUTION WIDTH 12.7 % (11.7-14.4)
[2020-11-15] MEDS: PIPERACILLIN/TAZOBACTAM 3.375 GM in SODIUM CHLORIDE 0.9% 50ML 50 ML IV SCH ×3 (06:43→22:00)
[2020-11-15] MEDS: SODIUM CHLORIDE 0.9% 1000ML 1,000 ML IV SCH (06:43)
[2020-11-15 07:14] LABS: ANION GAP 11.6 mmol/L (8-16); BLOOD UREA NITROGEN 7 mg/dL (7-26); BUN/CREATININE RATIO 11 (6-25); CALCIUM 7.8 mg/dL (8.4-10.2); CARBON DIOXIDE 25 mmol/L (22-29); CHLORIDE 105 mmol/L (98-107); CREATININE, SERUM 0.66 mg/dL (0.57-1.11); EST GLOMERULAR FILTRATION RATE > 60 ML/MIN (60-); GLUCOSE 94 mg/dL (74-118); POTASSIUM 3.6 mmol/L (3.5-5.1); SODIUM 138 mmol/L (136-145)
[2020-11-15] MEDS: CHOLESTYRAMINE 4 GM PACKET PO SCH ×2 (08:19→17:53)
[2020-11-15] MEDS: LACTOBACILLUS ACIDOPHILUS CAPSULE PO SCH ×3 (08:19→20:58)
[2020-11-15 08:20] VITALS: BP 134/85
[2020-11-15] MEDS: HEPARIN SOD (PORCINE) 5,000 UNIT/ML VIAL SC SCH ×2 (08:27→20:58)
[2020-11-15 08:39] VITALS: BP 134/85
[2020-11-15] MEDS ORDERED: SODIUM CHLORIDE 0.9% 250ML 250 ML ONE (14:21)
[2020-11-15] MEDS: LOPERAMIDE HCL 2 MG CAP PO PRN (14:24)
[2020-11-15 21:01] VITALS: BP 141/88
[2020-11-15 23:58] VITALS: BP 141/88
[2020-11-16] MEDS: PIPERACILLIN/TAZOBACTAM 3.375 GM in SODIUM CHLORIDE 0.9% 50ML 50 ML IV SCH ×2 (06:00→14:00)
[2020-11-16] MEDS: LACTOBACILLUS ACIDOPHILUS CAPSULE PO SCH ×2 (08:40→15:00)
[2020-11-16] MEDS: CHOLESTYRAMINE 4 GM PACKET PO SCH ×2 (08:40→17:00)
[2020-11-16] MEDS: ACETAMINOPHEN 325 MG TAB PO PRN (08:40)
[2020-11-16] MEDS: LOPERAMIDE HCL 2 MG CAP PO PRN (08:40)
[2020-11-16] MEDS: HEPARIN SOD (PORCINE) 5,000 UNIT/ML VIAL SC SCH (08:41)
[2020-11-16 10:06] VITALS: BP 125/86
[2020-11-16] MEDS ORDERED: SODIUM CHLORIDE 0.9% 1000ML 1,000 ML IV SCH (14:45)
[2020-11-16 15:21] LABS: BASOPHILS % 0.2 % (0.0-1.0); EOSINOPHILS # (AUTO) 0.1 (0.0-0.4); EOSINOPHILS % 0.7 % (0.0-6.0); HEMATOCRIT 38.3 % (34.2-44.1); HEMOGLOBIN 12.8 g/dL (12.0-16.0); LYMPHOCYTES # (AUTO) 2.2 (1.0-3.2); LYMPHOCYTES % 23.6 % (18.0-39.1); MEAN CORPUSCULAR HGB CONC 33.4 g/dL (31-35); MEAN CORPUSCULAR VOLUME 89.7 fL (81-99); MONOCYTES # (AUTO) 0.6 (0.2-0.8); NEUTROPHILS # (AUTO) 6.5 (2.1-6.9); NEUTROPHILS % 69.1 % (38.7-80.0); PLATELET COUNT 303 x10e3/uL (140-360); RED BLOOD COUNT 4.27 x10e6/uL (3.6-5.1); RED CELL DISTRIBUTION WIDTH 12.3 % (11.7-14.4)
[2020-11-16 15:37] LABS: ANION GAP 12.7 mmol/L (8-16); BLOOD UREA NITROGEN 10 mg/dL (7-26); BUN/CREATININE RATIO 14 (6-25); CALCIUM 8.6 mg/dL (8.4-10.2); CARBON DIOXIDE 29 mmol/L (22-29); CHLORIDE 100 mmol/L (98-107); CREATININE, SERUM 0.71 mg/dL (0.57-1.11); EST GLOMERULAR FILTRATION RATE > 60 ML/MIN (60-); GLUCOSE 94 mg/dL (74-118); POTASSIUM 3.7 mmol/L (3.5-5.1); SODIUM 138 mmol/L (136-145)
== END 2020-11-16 18:05 | disposition left against medical advice (07) | DRG 392 ==
LOC: ER 17:32 → ERHOLD 21:40 → MED/SURG3 23:36
PROVIDERS: ADMIT Internal Medicine; ATTEND Internal Medicine
DX: K57.32 Diverticulitis of large intestine without perforation or abscess without bleeding (principal); N39.0 Urinary tract infection, site not specified; K52.9 Noninfective gastroenteritis and colitis, unspecified; N70.92 Oophoritis, unspecified; E87.6 Hypokalemia; Z88.8 Allergy status to other drugs, medicaments and biological substances; Z20.822 Contact with and (suspected) exposure to COVID-19; R03.0 Elevated blood-pressure reading, without diagnosis of hypertension; N70.11 Chronic salpingitis
CPT/HCPCS: 36415; 74177; 76856; 80048; 80053; 81001; 81025; 83605; 85025; 87040; 87086; 93976; 96366; 99284; J0696; J1644; J1956; J2270; J2405; J2543; J7030; J7050; Q9967; U0002